=== PATIENT | female | born 1990 | race Caucasian/White ===

== ENCOUNTER 2025-04-15 10:13 | Emergency (ER) | payer OTHER, SELFPAY ==
[2025-04-15 10:14] VITALS: BP 160/102
[2025-04-15 11:32] LABS: Hematocrit 39.7 % (37.0-47.0); Hemoglobin 13.3 g/dL (12.0-16.0); Mean Corp Hgb Conc. 33.5 g/dL (33.0-37.0); Mean Corpuscular Volume 95.2 fL (81.0-99.0); Platelet Count 288 10^3/uL (130-400); Red Cell Dist. Width 13.2 % (11.5-14.5)
[2025-04-15 11:48] LABS: ALT (SGPT) 16 U/L (0-35); AST (SGOT) 21 U/L (14-36); Albumin 5.0 g/dl (3.5-5.0); Alkaline Phosphatase 44 U/L (38-126); Blood Urea Nitrogen 8 mg/dl (7-17); Calcium 9.2 mg/dl (8.4-10.2); Carbon Dioxide 29 mmol/L (22-30); Chloride 108 mmol/L (98-107); Glucose 99 mg/dl (70-99); Magnesium 2.3 mg/dl (1.6-2.3); Potassium 4.8 mmol/L (3.5-5.1); Sodium 143 mmol/L (135-145); Total Protein 7.9 g/dl (6.3-8.2); eGFR > 60.00
[2025-04-15 12:08] LABS: HCG, Serum Qualitative Screen Negative
[2025-04-15 12:15] LABS: TSH 1.09 uIU/ml (0.47-4.68)
--- NOTE | 2025-04-15 12:53 | ED.GENMED ---
History of Present Illness
General
Chief Complaint: Crisis Evaluation
Source: patient
Exam Limitations: none
Time Seen by Provider: 04/15/25 10:30
Nursing documentation reviewed up to this point in time: agreed with
History of Present Illness
History of Present Illness:
Patient presents to ED secondary to worsening depression and inability to sleep at nighttime over the past 2 years. Patient states that her symptoms started around when she became with her partner. Patient unfortunately ended up going
through her entire without assistance from her partner. However, after childbirth, her partner filed for child custody, and has had ongoing legal custody english with him. She currently has 6% custody and her partner 40%. As patient's
partner has had history of drug abuse, whenever patient's child is her partner, she becomes extremely worried that something may happen to her child. Patient denies suicidal or homicidal ideation. Patient was taking sertraline during ,
which she discontinued as it was not helping her. Denies loss of appetite. Denies recent weight changes. Denies recent illness.
Past History
Past History
ED Past Medical History: Other (Chronic UTIs, anxiety)
Social History
Tobacco: Smoker
Alcohol: None
Family History
Family History: Negative Diabetes, Hypertension or CAD
Review of Systems
Review of Systems
Allergies reviewed?: Yes
All Other Systems: ROS reviewed and negative except as documented in HPI and ROS
Constitutional: Reports no symptoms
Respiratory: Reports no symptoms; Denies trouble breathing
Cardiac: Reports no symptoms; Denies chest pain or palpitations
ABD/GI: Reports no symptoms
Musculoskeletal: Reports no symptoms
Skin: Reports no symptoms
Neurological: Reports no symptoms
Psychiatric: Reports depression
Phy Exam
Physical Exam
Physical Exam:
Physical Exam
General: mild distress, not acutely ill. afebrile
Head: nc/at. eomi
Neck: supple. normal range of motion.
Heart: s1/s2 regular rate and rhythm
Lungs: no acute respiratory distress. clear bilaterally
Abdomen: normal bowel sounds. not tender.
Neuro: alert and oriented x 3. no focal neurological deficits
Skin: no rash
Psychiatric: well kept. interactive and cooperative, but tearful during interview
Extremities: no edema. no calf tenderness.
Course
Orders/Labs/Results
Orders:
Orders
04/15/25 10:32
Crisis Consult Urgent
Reason for Consult: depression
04/15/25 10:50
PSYCHIATRY CONSULT Urgent
Consulting Provider: Juan Jose Sosa
Was physician already notified: Yes
Reason for consult: depression
04/15/25 10:59
Test Result ONCE
04/15/25 11:17
Complete Blood Count/No Diff Urgent
Comprehensive Metabolic Panel Urgent
HCG, Serum Qualitative Screen Urgent
Magnesium Urgent
TSH Urgent
Abnormal Lab Results
04/15/25
11:17
RBC 4.17 L 10^6/uL
(4.20-5.40)
MCH 31.9 H pg
(27.0-31.0)
MPV 10.8 H fL
(7.4-10.4)
Chloride 108 H mmol/L
(98-107)
04/15/25 11:17
04/15/25 11:17
Vital Signs
Initial and Last Documented VS:
Initial Vital Signs
Temp Pulse Resp BP Pulse Ox
98.1 F 110 16 160/102 100
04/15/25 10:14 04/15/25 10:14 04/15/25 10:14 04/15/25 10:14 04/15/25 10:14
Last Documented Vital Signs
Temp Pulse Resp BP Pulse Ox
98.1 F 110 16 160/102 100
04/15/25 10:14 04/15/25 10:14 04/15/25 10:14 04/15/25 10:14 04/15/25 12:57
MDM/Problems Addressed
MDM/Problems Addressed:
Patient with unremarkable blood work.
Patient evaluated by (psychiatry) - recommends starting patient on trazodone 50 mg at bedtime, along with outpatient treatment, which is to be arranged by [facility] panel lay up worker. Patient agrees with treatment plan, and will follow-up with
outpatient evaluation, which has been arranged for tomorrow afternoon.
*Pulse Oximetry
SaO2: 100
Oxygen Mode of Delivery: Room air
Patient hypoxic: no
*Critical Care Note
Total Time (30-74mins, 75-104mins- exclusive of procedures): Not Applicable
ED Attending Note
-
Portions of this chart may have been created with voice recognition software.� Occasional wrong word or��sound alike� substitutions may have occurred due to the inherent limitations of voice recognition software.
Discharge Plan
Departure
Patient Disposition: Home (Routine Discharge)
Date of Disposition: 04/15/25
Time of Disposition: 13:21
Patient with high blood pressure during this ER visit?: Yes
Condition: Good
Discharge Problem:
Depression
Instructions: Depression, Adult (DC)
Prescriptions:
New
trazodone 50 mg tablet
50 mg PO HS PRN (Reason: insomnia) Qty: 20 0RF
No Action
norgestimate-ethinyl estradiol [Ortho Tri-Cyclen (28)] 1 EACH tablet
1 ea PO DAILY
doxycycline hyclate [Doryx] 150 MG tablet,delayed release (DR/EC)
150 mg PO DAILY
phenazopyridine 200 MG tablet
200 mg PO TID PRN (Reason: painful urination) Qty: 15 0RF
levofloxacin 500 MG tablet
500 mg PO DAILY Qty: 7 0RF
Activity Restrictions/Additional Instructions:
As discussed, please follow-up with already arranged outpatient evaluation tomorrow afternoon for further evaluation and treatment.
Interventions
Interventions:
*Risk Screen - Suicide Last Done: 04/15/25 10:18
*General Assessment Last Done: 04/15/25 13:58
*Neglect/Abuse Screening Last Done: 04/15/25 10:18
*ED COVID-19 Vaccine History Last Done: 04/15/25 11:30
*ED Influenza Vaccine History Last Done: 04/15/25 11:30
*Nursing Disposition Last Done: 04/15/25 13:58
ED-Psychological Assessment Last Done: 04/15/25 11:30
Discharge Date and Time
Discharge Date/Time: 04/15/25 14:00
Print Language: ROMANSH
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
== END 2025-04-15 14:00 | disposition home or self-care (01) ==
LOC: EMR 10:13
PROVIDERS: CONSULT PHYSICIAN Psychiatry & Neurology Psychiatry; EMERGENCY PHYSICIAN Emergency Medicine
DX: F32.A Depression, unspecified (principal); G47.00 Insomnia, unspecified; F17.200 Nicotine dependence, unspecified, uncomplicated; Z79.899 Other long term (current) drug therapy; Z87.440 Personal history of urinary (tract) infections
CPT/HCPCS: 99283; 80053; 83735; 84443; 84703; 85027